=== PATIENT | male | born 1935 | race Caucasian/White ===

== ENCOUNTER 2018-11-29 16:48 | Inpatient (IN) ==
[2018-11-29] MEDS: Gabapentin 300 MG CAPSULE PO SCH (22:25)
[2018-11-30 05:09] LABS: White Blood Count 6.1 K/mcL (4.3-11.1)
[2018-11-30 05:10] LABS: Hematocrit 32.9 % (37.5-50.1); Hemoglobin 10.9 g/dL (12.9-16.9); Immature Granulocytes % 0.7 % (0-4); Lymphocytes # 0.5 K/mcL (0.6-4.6); Lymphocytes % 7.5 %; Mean Corpuscular HGB Conc 33.1 g/dL (31.6-35.5); Mean Corpuscular Hemoglobin 32.6 pg (28.0-33.3); Mean Corpuscular Volume 98.5 fL (83.0-100.0); Mean Platelet Volume 8.3 fL (9.4-12.4); Monocytes # 0.4 K/mcL (0.0-1.3); Monocytes % 6.1 %; Neutrophils # 5.2 K/mcL (1.6-8.9); Platelet Count 263 K/mcL (140-400); Red Blood Count 3.34 M/mcL (4.19-5.50); Red Cell Distribution Width 16.5 % (11.5-14.5); Segmented Neutrophils % 85.7 %
[2018-11-30 06:19] LABS: Carbon Dioxide 34 mEq/L (23-29); Chloride 89 mEq/L (98-107); Glucose 98 mg/dL (70-105); Potassium 4.2 mEq/L (3.5-5.1); Sodium 128 mEq/L (136-145); eGFR For African Americans > 60 (> 60); eGFR For Non-African Americans > 60 (> 60)
[2018-11-30 06:31] LABS: BUN/Creatinine Ratio 23 (6-26); Blood Urea Nitrogen 17 mg/dL (8-23); Osmolality,Calculated 268 (280-300)
[2018-11-30] MEDS: Gabapentin 300 MG CAPSULE PO SCH ×3 (08:47→22:43)
[2018-11-30] MEDS: Folic Acid 1 MG TABLET PO SCH (08:47)
[2018-11-30] MEDS: predniSONE 5 MG TABLET PO SCH (08:48)
[2018-11-30] MEDS: Ascorbic Acid 500 MG TABLET PO SCH (08:48)
[2018-11-30] MEDS: Cholecalciferol (D-3) 1,000 UNIT (25MCG) TABLET PO SCH (08:48)
[2018-11-30] MEDS: Metoprolol XL (24 HR) Succ 25 MG TAB.ER.24H PO SCH (08:48)
[2018-11-30] MEDS: Gentamicin OPTH Soln 5 ML BOTTLE BOTH EYES SCH ×4 (12:13→22:44)
--- NOTE | 2018-11-30 15:54 | Internal Med History&Physical ---
Date of Encounter: 11/30/18 Time of Encounter: 15:15 Assessment and Plan (1) Severe protein-calorie malnutrition Current visit: No Status: Chronic Soft diet with supplement has been ordered. (2) Lung mass Current visit: No Status: Acute Possible RLL malignancy although BAL showed no malignant cells with final cytology report pending. (3) Hypothyroidism Current visit: No Status: Chronic TSH was elevated during [facility] stay at 29.305. Patient was reportedly noncompliant at home with Synthroid use prior to hospitalization. His Synthroid dose was increased. TSH will be monitored. Qualifiers: Hypothyroidism type: unspecified Qualified Code(s): E03.9 - Hypothyroidism, unspecified (4) Anemia Current visit: No Status: Chronic Anemia testing 11/27/2018 showed iron 44, transferrin saturation 21%, transferrin 147, ferritin> 1500, B12 1450, and folate 8.9. Monitor CBC. Qualifiers: Anemia type: unspecified type Qualified Code(s): D64.9 - Anemia, unspecified (5) Dysphagia Current visit: No Status: Acute Continue soft diet with supplement. Monitor for aspiration symptoms. Qualifiers: Dysphagia type: unspecified Qualified Code(s): R13.10 - Dysphagia, unspecified (6) Afib Current visit: No Status: Acute Remain off OAC due to recent GI bleed. Qualifiers: Atrial fibrillation type: paroxysmal Qualified Code(s): I48.0 - Paroxysmal atrial fibrillation (7) Hypotension Current visit: No Status: Acute Orthostatic vital signs will be checked in a.m. Continue midodrine Qualifiers: Hypotension type: unspecified hypotension type Qualified Code(s): I95.9 - Hypotension, unspecified (8) Rheumatoid arthritis Current visit: No Status: Chronic Continue Plaquenil, methotrexate, and prednisone. Qualifiers: Rheumatoid arthritis location: unspecified site Rheumatoid factor presence: unspecified presence Qualified Code(s): M06.9 - Rheumatoid arthritis, unspecified (9) COPD (chronic obstructive pulmonary disease) Current visit: No Status: Chronic Continue Proventil and prednisone. Qualifiers: COPD type: unspecified COPD Qualified Code(s): J44.9 - Chronic obstructive pulmonary disease, unspecified Internal Medicine - H&P: HPI Chief complaint: Pneumonia, lung mass Admitted From: Hospital to Hospital Transfer Plans for Post Hospital Care: Home History of present illness: Mr. Morrow is a 83 year old male was hospitalized at [facility] November 25 after presenting with possible aspiration pneumonia. MBS was unremarkable. Bronchoscopy with right lower lobe BAL was done without malignancy diagnosed. Chest CT revealed dense masslike consolidation right lower lobe with air fluid level possibly representing tumor necrosis versus infection. It was felt he was too weak to undergo additional diagnostic testing such as lung biopsy. It was felt also he was a poor candidate for any cancer treatment if malignancy was found. Following stabilization he was discharged to [facility] swing bed for rehabilitation therapy prior to returning to independent living. Respiratory history is significant for having smoked since age 11 until quitting 3 weeks ago. He smoked up to one pack per day. He has a diagnosis of COPD and has oxygen at home but uses it only rarely when he feels dyspneic. Past Med Surg Social Fam HX - Past Medical History Medical history: arthritis, cancer, COPD, coronary artery disease, GERD, RA, thyroid disease Additional medical history: lymphoma, hypotension Psychiatric history: no psych history - Past Surgical History Surgical History: non-contributory - Social History Smoking Status: Former smoker Smokeless Tobacco Status: No Alcohol use: occasionally Drug use: none - Family History Brother Living Status: Still Living Hx Family Cancer: Yes (Lymphoma) Internal Medicine - H&P: Meds Ascorbate Calcium [Vitamin C] 500 mg PO DAILY 11/16/14 [History] Calcium Carbonate/Vitamin D3 [Calcium 600 + D Tablet] 1 each PO BID #60 tablet 11/16/14 [Rx] Omeprazole 20 mg PO DAILY 11/16/14 [History] Albuterol Sulfate [Proventil Inhaler] 2 puff IH Q4HR PRN 10/02/16 [History] Folic Acid 1 mg PO DAILY 10/02/16 [History] Hydroxychloroquine [Plaquenuil] 200 mg PO DAILY 10/02/16 [History] Methotrexate [Otrexup] 17.5 mg PO MILLS 10/02/16 [History] Gabapentin [Neurontin] 300 mg PO TID #90 capsule 07/23/18 [Rx] Midodrine HCl 10 mg PO TID #90 tablet 07/23/18 [Rx] Cholecalciferol (D-3) [Vitamin D] 2,000 unit PO DAILY 11/26/18 [History] Tobramycin 2 drop BOTH EYES Q4H 11/26/18 [History] predniSONE [PredniSONE] 5 mg PO DAILY 11/26/18 [History] Levothyroxine [Synthroid] 150 mcg PO DAILY@0630 tablet 11/29/18 [Rx] Metoprolol XL (24 HR) Succ [Toprol Xl] 25 mg PO DAILY tab.er.24h 11/29/18 [Rx] Sodium,Potassium Phosphates [Phos-Nak Packet] 1 each PO TID #90 powd.pack 11/29/18 [Rx] Allergy/AdvReac Type Severity Reaction Status Date / Time ceftriaxone [From Rocephin] AdvReac Anaphylaxis Verified 07/23/18 15:24 All Systems PM: A 10-system review of systems was performed and is negative for pertinent findings except as documented above in the HPI. Review of systems: Gen.: He states his weight has decreased approximately 12 pounds in the past 6 months. Prior to that he reports weight had remained stable for several years. Cardiovascular: He has history of atrial fibrillation that is apparently paroxysmal. He has orthostatic symptoms on standing from a seated position. He denies MS heart failure DVT or pulmonary embolus Respiratory: As per history of present illness GI: He had GI bleed during his recent [facility] stay. EGD showed esophagitis and ga stritis. OAC was not given for atrial fibrillation CVA prophylaxis due to GI bleed. He complains of intermittent dysphagia. He denies disorders of his liver gallbladder or exocrine pancreas : He has BPH symptoms with urinary urgency. He denies other kidney bladder prostate disorders. Neurologic: He denies large distribution strokes or seizures. Endocrine: He has hypothyroidism. He denies diabetes or hyperlipidemia. Hematology/oncology: He was diagnosed with large B-cell lymphoma 2008 and had chemotherapy treatments for 6 months. He reports he is in remission. He follows regularly with oncologist at [facility]. He had right lower lobe lung mass found without further workup as per history of present illness. He has anemia. Psychiatric: He has feelings of anxiety and depression but does not take medication at this time for mental health diagnoses. [place] skeletal: He has rheumatoid arthritis and degenerative disc disease. He denies gout or other bone joint or muscle disorders. - Constitutional Vitals: Temp Pulse Resp BP Pulse Ox 97.5 F L 78 18 129/78 93 11/30/18 06:37 11/30/18 06:37 11/30/18 06:37 11/30/18 06:37 11/30/18 06:37 Exam: Gen.: He is a well-developed cachectic male lying in bed who appears in no acute distress HEENT: Head is atraumatic and normocephalic. Eyes: EOMI. There is no scleral icterus. Mouth: Mucosa is moist. Neck: There is no thyromegaly or adenopathy noted. Heart: Regular without murmurs gallops or ectopics Lungs: He has diminished breath sounds diffusely. There are a few scattered rhonchi heard bilaterally. Abdomen: Soft and nontender. No masses or guarding are noted. Extremities: There is no cyanosis edema or clubbing noted. Dorsalis pedis and posterior tibial pulses are trace to 1+ palpable bilaterally. He has Dupuytren's contracture of the right fourth finger. He has flexion at the MCP joints with ulnar deviation on the right hand. The left hand shows no significant deformity. Neurologic: Mental status: He is talkative and a good historian. Cranial nerves: Smile is symmetric. Forehead wrinkles bilaterally. Tongue protrudes midline. EOMI. Motor: There is no pronator drift. Cerebellar: [place] nose is intact bilaterally. Skin: Warm and dry. He has ecchymoses in various stages covering large portions of his arms. Internal Med - H&P Results - Labs CBC & Chem 7: 11/30/18 04:55 11/30/18 04:55 Labs: Short CBC 11/30/18 Range/Units 04:55 WBC 6.1 (4.3-11.1) K/mcL Hgb 10.9 L (12.9-16.9) g/dL Hct 32.9 L (37.5-50.1) % Plt Count 263 (140-400) K/mcL Neutrophils # 5.2 (1.6-8.9) K/mcL BMP 11/30/18 04:55 Sodium 128 L Potassium 4.2 Chloride 89 L Carbon Dioxide 34 H BUN 17 Creatinine 0.74 Glucose 98 Calcium 9.0
[2018-12-01] MEDS: Gentamicin OPTH Soln 5 ML BOTTLE BOTH EYES SCH ×4 (08:49→21:13)
[2018-12-01] MEDS: Folic Acid 1 MG TABLET PO SCH (09:02)
[2018-12-01] MEDS: Gabapentin 300 MG CAPSULE PO SCH ×3 (09:02→21:41)
[2018-12-01] MEDS: Metoprolol XL (24 HR) Succ 25 MG TAB.ER.24H PO SCH (09:03)
[2018-12-01] MEDS: Cholecalciferol (D-3) 1,000 UNIT (25MCG) TABLET PO SCH (09:03)
[2018-12-01] MEDS: Ascorbic Acid 500 MG TABLET PO SCH (09:03)
[2018-12-01] MEDS: predniSONE 5 MG TABLET PO SCH (09:03)
--- NOTE | 2018-12-01 09:50 | Internal Med Progress Note ---
Date of Encounter: 12/01/18 Time of Encounter: 09:40 - Assessment and plan (1) Severe protein-calorie malnutrition Current Visit: No Status: Chronic Assessment and plan: December 01. Continue soft diet with supplement. (2) Lung mass Current Visit: No Status: Acute Assessment and plan: December 01. Possible RLL malignancy although BAL showed no malignant cells with final cytology report pending. (3) Hypothyroidism Current Visit: No Status: Chronic Assessment and plan: December 01. Continue present dose Synthroid. Qualifiers: Hypothyroidism type: unspecified Qualified Code(s): E03.9 - Hypothyroidism, unspecified (4) Anemia Current Visit: No Status: Chronic Assessment and plan: December 01. Anemia testing 11/27/2018 showed iron 44, transferrin saturation 21%, transferrin 147, ferritin> 1500, B12 1450, and folate 8.9. Monitor CBC. Qualifiers: Anemia type: unspecified type Qualified Code(s): D64.9 - Anemia, unsp ecified (5) Dysphagia Current Visit: No Status: Acute Assessment and plan: December 01. MBS 11/26/2018 showed no evidence of aspiration. Continue present diet and monitor. Qualifiers: Dysphagia type: unspecified Qualified Code(s): R13.10 - Dysphagia, unspecified (6) Afib Current Visit: No Status: Acute Assessment and plan: December 01. Remain off OAC due to recent GI bleed. Qualifiers: Atrial fibrillation type: paroxysmal Qualified Code(s): I48.0 - Paroxysmal atrial fibrillation (7) Hypotension Current Visit: No Status: Acute Assessment and plan: December 01. Orthostatic vital signs showed blood pressure 151/83 lying decreasing to 102/64 standing. Pulse rate increased slightly from 77 lying to 81 standing. Decrease Toprol-XL to 12.5 mg daily. Continue midodrine. Qualifiers: Hypotension type: unspecified hypotension type Qualified Code(s): I95.9 - Hypotension, unspecified (8) Rheumatoid arthritis Current Visit: No Status: Chronic Assessment and plan: December 01. Continue Plaquenil, methotrexate, and prednisone. Qualifiers: Rheumatoid arthritis location: unspecified site Rheumatoid factor presence: unspecified presence Qualified Code(s): M06.9 - Rheumatoid arthritis, unspecified (9) COPD (chronic obstructive pulmonary disease) Current Visit: No Status: Chronic Assessment and plan: December 01. Continue Proventil and prednisone. Qualifiers: COPD type: unspecified COPD Qualified Code(s): J44.9 - Chronic obstructive pulmonary disease, unspecified - Subjective Interval history: December 01. He states he feels "cold". He reports a cough productive of yellow sputum. - Constitutional Vitals: Temp Pulse Resp BP Pulse Ox 98.0 F 77 22 151/83 97 12/01/18 06:32 12/01/18 06:32 12/01/18 06:32 12/01/18 06:32 12/01/18 06:32 Exam: He is resting comfortably in bed and appears in no acute distress. He is not tachypneiic. Lungs show no wheezes or rhonchi. Heart is regular without murmurs gallops or ectopics. Extremities show no pitting edema. Reviewed his medications and lab results. Internal Medicine: Result - Labs CBC & Chem 7: 11/30/18 04:55 11/30/18 04:55 Consult Discharge Plan - Plan Referrals: Yimi Matthews DO [Primary Care Provider] - 1 week
[2018-12-01] MEDS ORDERED: *HR* Methotrexate 2.5 MG TABLET PO SCH (18:00)
[2018-12-02 05:26] LABS: Basophils % 0.3 %; Eosinophils % 0.5 %; Hematocrit 35.1 % (37.5-50.1); Hemoglobin 11.8 g/dL (12.9-16.9); Immature Granulocytes % 1.1 % (0-4); Lymphocytes # 0.5 K/mcL (0.6-4.6); Lymphocytes % 7.1 %; Mean Corpuscular HGB Conc 33.6 g/dL (31.6-35.5); Mean Corpuscular Hemoglobin 33.1 pg (28.0-33.3); Mean Corpuscular Volume 98.3 fL (83.0-100.0); Mean Platelet Volume 8.6 fL (9.4-12.4); Monocytes # 0.8 K/mcL (0.0-1.3); Monocytes % 10.9 %; Neutrophils # 5.9 K/mcL (1.6-8.9); Platelet Count 255 K/mcL (140-400); Red Blood Count 3.57 M/mcL (4.19-5.50); Red Cell Distribution Width 15.7 % (11.5-14.5); Segmented Neutrophils % 80.1 %; White Blood Count 7.3 K/mcL (4.3-11.1)
[2018-12-02 05:45] LABS: Alanine Aminotransferase 18 Units/L (7-52); Albumin 3.3 g/dL (3.5-5.7); Albumin/Globulin Ratio 1.1 (1.1-2.2); Alkaline Phosphatase 82 Units/L (34-104); Aspartate Amino Transferase 21 Units/L (13-39); BUN/Creatinine Ratio 28 (6-26); Bilirubin,Total 0.8 mg/dL (0.3-1.0); Blood Urea Nitrogen 20 mg/dL (8-23); Calcium 8.8 mg/dL (8.6-10.3); Carbon Dioxide 41 mEq/L (23-29); Chloride 85 mEq/L (98-107); Globulin 2.9 g/dL (2.4-3.5); Glucose 84 mg/dL (70-105); Osmolality,Calculated 268 (280-300); Phosphorous 2.7 mg/dL (2.7-4.5); Potassium 3.8 mEq/L (3.5-5.1); Sodium 128 mEq/L (136-145); Total Protein 6.2 g/dL (6.4-8.9); eGFR For African Americans > 60 (> 60); eGFR For Non-African Americans > 60 (> 60)
[2018-12-02] MEDS: Metoprolol XL (24 HR) Succ 25 MG TAB.ER.24H PO SCH (09:17)
[2018-12-02] MEDS: Ascorbic Acid 500 MG TABLET PO SCH (09:17)
[2018-12-02] MEDS: predniSONE 5 MG TABLET PO SCH (09:17)
[2018-12-02] MEDS: Gabapentin 300 MG CAPSULE PO SCH ×3 (09:18→20:26)
[2018-12-02] MEDS: Cholecalciferol (D-3) 1,000 UNIT (25MCG) TABLET PO SCH (09:18)
[2018-12-02] MEDS: Folic Acid 1 MG TABLET PO SCH (09:18)
--- NOTE | 2018-12-02 12:04 | Internal Med Progress Note ---
Date of Encounter: 12/02/18 Time of Encounter: 11:55 - Assessment and plan (1) Severe protein-calorie malnutrition Current Visit: No Status: Chronic Assessment and plan: December 01. Continue soft diet with supplement. (2) Lung mass Current Visit: No Status: Acute Assessment and plan: December 01. Possible RLL malignancy although BAL showed no malignant cells with final cytology report pending. December 02. Chest x-ray will be ordered to follow-up ongoing cough with yellow mucus production. Pro-calcitonin level will be checked. It was WNL on 11/25/2018 at 0.14. Mucinex will be started. (3) Hypothyroidism Current Visit: No Status: Chronic Assessment and plan: December 01. Continue present dose Synthroid. Qualifiers: Hypothyroidism type: unspecified Qualified Code(s): E03.9 - Hypothyroidism, unspecified (4) Anemia Current Visit: No Status: Chronic Assessment and plan: December 01. Anemia testing 11/27/2018 showed iron 44, transferrin saturation 21%, transferrin 147, ferritin> 1500, B12 1450, and folate 8.9. Monitor CBC. Qualifiers: Anemia type: unspecified type Qualified Code(s): D64.9 - Anemia, unsp ecified (5) Dysphagia Current Visit: No Status: Acute Assessment and plan: December 01. MBS 11/26/2018 showed no evidence of aspiration. Continue present diet and monitor. Qualifiers: Dysphagia type: unspecified Qualified Code(s): R13.10 - Dysphagia, unspecified (6) Afib Current Visit: No Status: Acute Assessment and plan: December 01. Remain off OAC due to recent GI bleed. December 2. Paroxysmal. He had NSR on EKG 12/26/2018 but atrial flutter on EKGs done November 26 and . Heart rate is controlled at present time. Qualifiers: Atrial fibrillation type: paroxysmal Qualified Code(s): I48.0 - Paroxysmal atrial fibrillation (7) Hypotension Current Visit: No Status: Acute Assessment and plan: December 01. Orthostatic vital signs showed blood pressure 151/83 lying decreasing to 102/64 standing. Pulse rate increased slightly from 77 lying to 81 standing. Decrease Toprol-XL to 12.5 mg daily. Continue midodrine. Qualifiers: Hypotension type: unspecified hypotension type Qualified Code(s): I95.9 - Hypotension, unspecified (8) Rheumatoid arthritis Current Visit: No Status: Chronic Assessment and plan: December 01. Continue Plaquenil, methotrexate, and prednisone. Qualifiers: Rheumatoid arthritis location: unspecified site Rheumatoid factor presence: unspecified presence Qualified Code(s): M06.9 - Rheumatoid arthritis, unspecified (9) COPD (chronic obstructive pulmonary disease) Current Visit: No Status: Chronic Assessment and plan: December 01. Continue Proventil and prednisone. Qualifiers: COPD type: unspecified COPD Qualified Code(s): J44.9 - Chronic obstructive pulmonary disease, unspecified - Subjective Interval history: December 01. He states he feels "cold". He reports a cough productive of yellow sputum. December 02. He reports ongoing cough productive of yellow sputum. - Constitutional Vitals: Temp Pulse Resp BP Pulse Ox 97.5 F L 79 16 119/69 96 12/02/18 06:38 12/02/18 06:38 12/02/18 06:38 12/02/18 06:38 12/02/18 06:38 Exam: He is sitting in bed eating lunch. He coughed occasionally during examination. Heart is regular without murmurs gallops or ectopics. Lungs show very few scattered rhonchi. No expiratory wheezing is heard. I reviewed his medications and lab results. Internal Medicine: Result - Labs CBC & Chem 7: 12/02/18 05:19 12/02/18 05:19 Labs: Short CBC 12/02/18 Range/Units 05:19 WBC 7.3 (4.3-11.1) K/mcL Hgb 11.8 L (12.9-16.9) g/dL Hct 35.1 L (37.5-50.1) % Plt Count 255 (140-400) K/mcL Neutrophils # 5.9 (1.6-8.9) K/mcL BMP 12/02/18 05:19 Sodium 128 L Potassium 3.8 Chloride 85 L Carbon Dioxide 41 H* BUN 20 Creatinine 0.71 Glucose 84 Calcium 8.8 Liver Function 12/02/18 Range/Units 05:19 Total Bilirubin 0.8 (0.3-1.0) mg/dL AST 21 (13-39) Units/L ALT 18 (7-52) Units/L Alkaline Phosphatase 82 (34-104) Units/L Albumin 3.3 L (3.5-5.7) g/dL Consult Discharge Plan - Plan Referrals: Yimi Matthews DO [Primary Care Provider] - 1 week
[2018-12-02] MEDS: Gentamicin OPTH Soln 5 ML BOTTLE BOTH EYES SCH ×2 (14:21→16:33)
[2018-12-02] MEDS ORDERED: CIPROFLOXACIN OPTH BOTH EYES SCH (21:00)
[2018-12-02] MEDS ORDERED: CIPROFLOXACIN OPTH RIGHT EYE SCH (21:00)
[2018-12-03] MEDS ORDERED: levoFLOXacin 750 MG/150 ML 750 MG/150 ML BAG IVPB ONE (02:08)
[2018-12-03 06:33] LABS: Basophils % 0.3 %; Eosinophils # 0.1 K/mcL (0.0-0.6); Eosinophils % 0.5 %; Hematocrit 37.3 % (37.5-50.1); Hemoglobin 12.6 g/dL (12.9-16.9); Immature Granulocytes % 0.6 % (0-4); Lymphocytes # 0.4 K/mcL (0.6-4.6); Lymphocytes % 3.6 %; Mean Corpuscular HGB Conc 33.8 g/dL (31.6-35.5); Mean Corpuscular Hemoglobin 33.5 pg (28.0-33.3); Mean Corpuscular Volume 99.2 fL (83.0-100.0); Mean Platelet Volume 9.1 fL (9.4-12.4); Monocytes # 0.4 K/mcL (0.0-1.3); Monocytes % 3.5 %; Neutrophils # 9.6 K/mcL (1.6-8.9); Platelet Count 299 K/mcL (140-400); Red Blood Count 3.76 M/mcL (4.19-5.50); Red Cell Distribution Width 15.8 % (11.5-14.5); Segmented Neutrophils % 91.5 %; White Blood Count 10.5 K/mcL (4.3-11.1)
[2018-12-03] MEDS: Cholecalciferol (D-3) 1,000 UNIT (25MCG) TABLET PO SCH (09:24)
[2018-12-03] MEDS: Metoprolol XL (24 HR) Succ 25 MG TAB.ER.24H PO SCH (09:24)
[2018-12-03] MEDS: predniSONE 5 MG TABLET PO SCH (09:24)
[2018-12-03] MEDS: Folic Acid 1 MG TABLET PO SCH (09:25)
[2018-12-03] MEDS: Ascorbic Acid 500 MG TABLET PO SCH (09:25)
[2018-12-03] MEDS: Ciprofloxacin OPTH Soln 2.5 ML BOTTLE BOTH EYES SCH ×2 (09:25→21:22)
[2018-12-03] MEDS: Gabapentin 300 MG CAPSULE PO SCH ×3 (09:25→21:22)
[2018-12-03] MEDS ORDERED: *HR* Propranolol 1 MG/ML VIAL IVP ONE (10:31)
[2018-12-03] MEDS ORDERED: *HR* Digoxin 0.5 MG/2 ML AMPUL IVP ONE ×2 (10:32→12:07)
[2018-12-03] MEDS ORDERED: *HR* Adenosine 6 MG/2 ML VIAL IVP ONE ×2 (11:17→11:47)
[2018-12-03] MEDS ORDERED: 0.9 % Sodium Chloride 500 ML IVC ONE (11:18)
[2018-12-03] MEDS ORDERED: 0.9 % Sodium Chloride 1,000 ML ONE ×2 (11:32→17:27)
[2018-12-03 11:53] LABS: Alanine Aminotransferase 15 Units/L (7-52); Albumin/Globulin Ratio 1.1 (1.1-2.2); Alkaline Phosphatase 67 Units/L (34-104); Aspartate Amino Transferase 19 Units/L (13-39); BUN/Creatinine Ratio 30 (6-26); Bilirubin,Total 0.9 mg/dL (0.3-1.0); Blood Urea Nitrogen 23 mg/dL (8-23); Calcium 8.6 mg/dL (8.6-10.3); Carbon Dioxide 36 mEq/L (23-29); Chloride 86 mEq/L (98-107); Globulin 2.7 g/dL (2.4-3.5); Glucose 106 mg/dL (70-105); Osmolality,Calculated 268 (280-300); Potassium 3.9 mEq/L (3.5-5.1); Sodium 127 mEq/L (136-145); Total Protein 5.7 g/dL (6.4-8.9); eGFR For African Americans > 60 (> 60); eGFR For Non-African Americans > 60 (> 60)
[2018-12-03] MEDS: Piperacillin/Tazobactam 3.375 GM in 0.9 % Sodium Chloride Mini Bag 100 ML IVPB SCH ×2 (12:26→21:21)
--- NOTE | 2018-12-03 12:39 | Internal Med Progress Note ---
Date of Encounter: 12/03/18 Time of Encounter: 12:25 - Assessment and plan (1) Severe protein-calorie malnutrition Current Visit: No Status: Chronic Assessment and plan: December 01. Continue soft diet with supplement. (2) Lung mass Current Visit: No Status: Acute Assessment and plan: December 01. Possible RLL malignancy although BAL showed no malignant cells with final cytology report pending. December 02. Chest x-ray will be ordered to follow-up ongoing cough with yellow mucus production. Pro-calcitonin level will be checked. It was WNL on 11/25/2018 at 0.14. Mucinex will be started. (3) Hypothyroidism Current Visit: No Status: Chronic Assessment and plan: December 01. Continue present dose Synthroid. Qualifiers: Hypothyroidism type: unspecified Qualified Code(s): E03.9 - Hypothyroidism, unspecified (4) Anemia Current Visit: No Status: Chronic Assessment and plan: December 01. Anemia testing 11/27/2018 showed iron 44, transferrin saturation 21%, transferrin 147, ferritin> 1500, B12 1450, and folate 8.9. Monitor CBC. Qualifiers: Anemia type: unspecified type Qualified Code(s): D64.9 - Anemia, unsp ecified (5) Dysphagia Current Visit: No Status: Acute Assessment and plan: December 01. MBS 11/26/2018 showed no evidence of aspiration. Continue present diet and monitor. Qualifiers: Dysphagia type: unspecified Qualified Code(s): R13.10 - Dysphagia, unspecified (6) Afib Current Visit: No Status: Acute Assessment and plan: December 01. Remain off OAC due to recent GI bleed. December 02. Paroxysmal. He had NSR on EKG 12/26/2018 but atrial flutter on EKGs done November 26 and . Heart rate is controlled at present time. December 03. Telemetry strip shows atrial fib/flutter with RVR. He has been given IV Inderal, Lanoxin, and Adenocard. Heart rate has begun to decrease. Continue to monitor. Qualifiers: Atrial fibrillation type: paroxysmal Qualified Code(s): I48.0 - Paroxysmal atrial fibrillation (7) Hypotension Current Visit: No Status: Acute Assessment and plan: December 01. Orthostatic vital signs showed blood pressure 151/83 lying decreasing to 102/64 standing. Pulse rate increased slightly from 77 lying to 81 standing. Decrease Toprol-XL to 12.5 mg daily. Continue midodrine. December 03. IV fluid bolus was given for worsened hypotension this morning. His pressure has responded with return to normal range. Continue to monitor. Qualifiers: Hypotension type: unspecified hypotension type Qualified Code(s): I95.9 - Hypotension, unspecified (8) Rheumatoid arthritis Current Visit: No Status: Chronic Assessment and plan: December 01. Continue Plaquenil, methotrexate, and prednisone. Qualifiers: Rheumatoid arthritis location: unspecified site Rheumatoid factor presence: unspecified presence Qualified Code(s): M06.9 - Rheumatoid arthritis, unspecified (9) COPD (chronic obstructive pulmonary disease) Current Visit: No Status: Chronic Assessment and plan: December 01. Continue Proventil and prednisone. Qualifiers: COPD type: unspecified COPD Qualified Code(s): J44.9 - Chronic obstructive pulmonary disease, unspecified - Subjective Interval history: December 01. He states he feels "cold". He reports a cough productive of yellow sputum. December 02. He reports ongoing cough productive of yellow sputum. December 03. He states still has significant cough with dyspnea and does not feel well. - Constitutional Vitals: Temp Pulse Resp BP Pulse Ox 98.4 F 138 30 72/40 100 12/03/18 07:20 12/03/18 11:05 12/03/18 11:05 12/03/18 11:05 12/03/18 11:05 Exam: He is resting in bed wearing oxygen by mask. Heart is tachycardic rate approximately 130/m. Lungs show no external wheezes anteriorly. Extermination no pitting edema. I reviewed his telemetry strips, medications, and lab results. Internal Medicine: Result - Labs CBC & Chem 7: 12/03/18 05:45 12/03/18 11:34 Labs: Short CBC 12/03/18 Range/Units 05:45 WBC 10.5 (4.3-11.1) K/mcL Hgb 12.6 L (12.9-16.9) g/dL Hct 37.3 L (37.5-50.1) % Plt Count 299 (140-400) K/mcL Neutrophils # 9.6 H (1.6-8.9) K/mcL BMP 12/03/18 11:34 Sodium 127 L Potassium 3.9 Chloride 86 L Carbon Dioxide 36 H BUN 23 Creatinine 0.77 Glucose 106 H Calcium 8.6 Liver Function 12/03/18 Range/Units 11:34 Total Bilirubin 0.9 (0.3-1.0) mg/dL AST 19 (13-39) Units/L ALT 15 (7-52) Units/L Alkaline Phosphatase 67 (34-104) Units/L Albumin 3.0 L (3.5-5.7) g/dL - Impressions Impressions Chest X-Ray 12/02/18 12:12 IMPRESSION: Findings similar to the prior study 11/25/2018 showing right pleural effusion and multifocal bilateral airspace disease. D/ / Josefina Marie Cha, MD / Josefina Marie Cha, MD Interpreting Provider: Josefina Marie Cha, MD Consult Discharge Plan - Plan Referrals: Yimi Matthews DO [Primary Care Provider] - 1 week
[2018-12-03] MEDS: 0.9 % Sodium Chloride 1,000 ML IVC SCH (18:06)
[2018-12-04] MEDS: Piperacillin/Tazobactam 3.375 GM in 0.9 % Sodium Chloride Mini Bag 100 ML IVPB SCH ×3 (04:20→19:42)
[2018-12-04] MEDS: 0.9 % Sodium Chloride 1,000 ML IVC SCH (04:22)
[2018-12-04 07:06] LABS: Basophils % 0.2 %; Eosinophils % 0.1 %; Hematocrit 32.8 % (37.5-50.1); Hemoglobin 11.1 g/dL (12.9-16.9); Immature Granulocytes % 0.6 % (0-4); Lymphocytes # 0.5 K/mcL (0.6-4.6); Lymphocytes % 4.1 %; Mean Corpuscular HGB Conc 33.8 g/dL (31.6-35.5); Mean Corpuscular Hemoglobin 33.5 pg (28.0-33.3); Mean Corpuscular Volume 99.1 fL (83.0-100.0); Mean Platelet Volume 8.5 fL (9.4-12.4); Monocytes # 0.3 K/mcL (0.0-1.3); Monocytes % 2.9 %; Neutrophils # 10.4 K/mcL (1.6-8.9); Platelet Count 290 K/mcL (140-400); Red Blood Count 3.31 M/mcL (4.19-5.50); Red Cell Distribution Width 15.9 % (11.5-14.5); Segmented Neutrophils % 92.1 %; White Blood Count 11.3 K/mcL (4.3-11.1)
[2018-12-04 07:43] LABS: BUN/Creatinine Ratio 30 (6-26); Blood Urea Nitrogen 20 mg/dL (8-23); Calcium 8.6 mg/dL (8.6-10.3); Carbon Dioxide 29 mEq/L (23-29); Chloride 91 mEq/L (98-107); Glucose 83 mg/dL (70-105); Osmolality,Calculated 272 (280-300); Potassium 3.4 mEq/L (3.5-5.1); Sodium 130 mEq/L (136-145); eGFR For African Americans > 60 (> 60); eGFR For Non-African Americans > 60 (> 60)
[2018-12-04] MEDS: Ascorbic Acid 500 MG TABLET PO SCH (09:47)
[2018-12-04] MEDS: predniSONE 5 MG TABLET PO SCH (09:47)
[2018-12-04] MEDS: Metoprolol XL (24 HR) Succ 25 MG TAB.ER.24H PO SCH (09:47)
[2018-12-04] MEDS: Folic Acid 1 MG TABLET PO SCH (09:47)
[2018-12-04] MEDS: Cholecalciferol (D-3) 1,000 UNIT (25MCG) TABLET PO SCH (09:47)
[2018-12-04] MEDS: Gabapentin 300 MG CAPSULE PO SCH ×3 (09:47→19:44)
[2018-12-04] MEDS: levoFLOXacin 750 MG/150 ML 750 MG/150 ML BAG IVPB SCH (09:48)
[2018-12-04] MEDS: Ciprofloxacin OPTH Soln 2.5 ML BOTTLE BOTH EYES SCH ×2 (09:48→19:59)
[2018-12-04] MEDS ORDERED: 0.9 % Sodium Chloride w KCl 20 MEQ/1,000 ML MLS IVC SCH ×2 (11:30→23:20)
--- NOTE | 2018-12-04 11:48 | Internal Med Progress Note ---
Date of Encounter: 12/04/18 Time of Encounter: 11:40 - Assessment and plan (1) Severe protein-calorie malnutrition Current Visit: No Status: Chronic Assessment and plan: December 01. Continue soft diet with supplement. (2) Lung mass Current Visit: No Status: Acute Assessment and plan: December 01. Possible RLL malignancy although BAL showed no malignant cells with final cytology report pending. December 02. Chest x-ray will be ordered to follow-up ongoing cough with yellow mucus production. Pro-calcitonin level will be checked. It was WNL on 11/25/2018 at 0.14. Mucinex will be started. December 04. Chest CT will be done to further evaluate and follow-up on right lower lobe cavitary lesion. (3) Hypothyroidism Current Visit: No Status: Chronic Assessment and plan: December 01. Continue present dose Synthroid. Qualifiers: Hypothyroidism type: unspecified Qualified Code(s): E03.9 - Hypothyroidism, unspecified (4) Anemia Current Visit: No Status: Chronic Assessment and plan: December 01. Anemia testing 11/27/2018 showed iron 44, transferrin saturation 21%, transferrin 147, ferritin> 1500, B12 1450, and folate 8.9. Monitor CBC. December 04. Hemoglobin stable 11.1 today. Qualifiers: Anemia type: unspecified type Qualified Code(s): D64.9 - Anemia, unspecified (5) Dysphagia Current Visit: No Status: Acute Assessment and plan: December 01. MBS 11/26/2018 showed no evidence of aspiration. Continue present diet and monitor. Qualifiers: Dysphagia type: unspecified Qualified Code(s): R13.10 - Dysphagia, unspecified (6) Afib Current Visit: No Status: Acute Assessment and plan: December 01. Remain off OAC due to recent GI bleed. December 02. Paroxysmal. He had NSR on EKG 12/26/2018 but atrial flutter on EKGs done November 26 and . Heart rate is controlled at present time. December 03. Telemetry strip shows atrial fib/flutter with RVR. He has been given IV Inderal, Lanoxin, and Adenocard. Heart rate has begun to decrease. Continue to monitor. December 04. He converted to NSR yesterday afternoon. Heart rate remains regular at 96/m now. Start oral Lanoxin and continue low-dose Toprol-XL. Qualifiers: Atrial fibrillation type: paroxysmal Qualified Code(s): I48.0 - Paroxysmal atrial fibrillation (7) Hypotension Current Visit: No Status: Acute Assessment and plan: December 01. Orthostatic vital signs showed blood pressure 151/83 lying decreasing to 102/64 standing. Pulse rate increased slightly from 77 lying to 81 standing. Decrease Toprol-XL to 12.5 mg daily. Continue midodrine. December 03. IV fluid bolus was given for worsened hypotension this morning. His pressure has responded with return to normal range. Continue to monitor. Qualifiers: Hypotension type: unspecified hypotension type Qualified Code(s): I95.9 - Hypotension, unspecified (8) Rheumatoid arthritis Current Visit: No Status: Chronic Assessment and plan: December 01. Continue Plaquenil, methotrexate, and prednisone. Qualifiers: Rheumatoid arthritis location: unspecified site Rheumatoid factor presence: unspecified presence Qualified Code(s): M06.9 - Rheumatoid arthritis, unspecified (9) COPD (chronic obstructive pulmonary disease) Current Visit: No Status: Chronic Assessment and plan: December 01. Continue Proventil and prednisone. Qualifiers: COPD type: unspecified COPD Qualified Code(s): J44.9 - Chronic obstructive pulmonary disease, unspecified - Subjective Interval history: December 01. He states he feels "cold". He reports a cough productive of yellow sputum. December 02. He reports ongoing cough productive of yellow sputum. December 03. He states still has significant cough with dyspnea and does not feel well. December 04. He states he has significant dyspnea. He has required oxygen by NRB to maintain acceptable saturation. Advance directives were ordered yesterday after conversation with him and he expressed a desire to be DNR CC. - Constitutional Vitals: Temp Pulse Resp BP Pulse Ox 96.7 F L 92 40 129/72 89 12/04/18 06:33 12/04/18 06:33 12/04/18 06:33 12/04/18 06:33 12/04/18 09:04 Exam: He is resting in bed wearing NRB. He appears dyspneic but is able to speak. Heart is regular with rate approximately 96/m. Extremities show no pitting edema. I reviewed his medications and lab results. Internal Medicine: Result - Labs CBC & Chem 7: 12/04/18 06:50 12/04/18 06:50 Labs: Short CBC 12/04/18 Range/Units 06:50 WBC 11.3 H (4.3-11.1) K/mcL Hgb 11.1 L D (12.9-16.9) g/dL Hct 32.8 L (37.5-50.1) % Plt Count 290 (140-400) K/mcL Neutrophils # 10.4 H (1.6-8.9) K/mcL BMP 12/03/18 12/04/18 11:34 06:50 Sodium 127 L 130 L Potassium 3.9 3.4 L Chloride 86 L 91 L Carbon Dioxide 36 H 29 BUN 23 20 Creatinine 0.77 0.66 L Glucose 106 H 83 Calcium 8.6 8.6 Liver Function 12/03/18 Range/Units 11:34 Total Bilirubin 0.9 (0.3-1.0) mg/dL AST 19 (13-39) Units/L ALT 15 (7-52) Units/L Alkaline Phosphatase 67 (34-104) Units/L Albumin 3.0 L (3.5-5.7) g/dL Consult Discharge Plan - Plan Referrals: Yimi Matthews DO [Primary Care Provider] - 1 week
[2018-12-04] MEDS: Gentamicin OPTH Soln 5 ML BOTTLE BOTH EYES SCH (11:50)
[2018-12-04] MEDS ORDERED: Potassium Chloride Elixir 20 MEQ/15 ML UDC PO ONE (12:30)
[2018-12-04] MEDS: *HR* Digoxin 0.125 MG TABLET PO SCH (12:37)
[2018-12-04] MEDS ORDERED: Furosemide 20 MG/2 ML VIAL IVP ONE (23:30)
[2018-12-05] MEDS ORDERED: *HR* Digoxin 0.5 MG/2 ML AMPUL IVP ONE (02:23)
[2018-12-05] MEDS ORDERED: *HR* Propranolol 1 MG/ML VIAL IVP ONE (03:12)
[2018-12-05] MEDS: Piperacillin/Tazobactam 3.375 GM in 0.9 % Sodium Chloride Mini Bag 100 ML IVPB SCH ×2 (03:21→13:07)
[2018-12-05 07:00] LABS: Basophils % 0.1 %; Hemoglobin 11.7 g/dL (12.9-16.9); Immature Granulocytes % 0.7 % (0-4); Lymphocytes # 0.4 K/mcL (0.6-4.6); Lymphocytes % 2.8 %; Mean Corpuscular HGB Conc 34.4 g/dL (31.6-35.5); Mean Corpuscular Hemoglobin 33.5 pg (28.0-33.3); Mean Corpuscular Volume 97.4 fL (83.0-100.0); Mean Platelet Volume 8.8 fL (9.4-12.4); Monocytes # 0.6 K/mcL (0.0-1.3); Monocytes % 4.7 %; Neutrophils # 11.5 K/mcL (1.6-8.9); Platelet Count 323 K/mcL (140-400); Red Blood Count 3.49 M/mcL (4.19-5.50); Red Cell Distribution Width 15.7 % (11.5-14.5); Segmented Neutrophils % 91.7 %; White Blood Count 12.5 K/mcL (4.3-11.1)
[2018-12-05 07:03] VITALS: BP 110/77
[2018-12-05 07:26] LABS: Platelet Estimate Normal (Normal)
[2018-12-05] MEDS: Metoprolol XL (24 HR) Succ 25 MG TAB.ER.24H PO SCH (07:31)
[2018-12-05] MEDS: Gabapentin 300 MG CAPSULE PO SCH ×2 (07:31→17:03)
[2018-12-05] MEDS: Cholecalciferol (D-3) 1,000 UNIT (25MCG) TABLET PO SCH (07:31)
[2018-12-05] MEDS: levoFLOXacin 750 MG/150 ML 750 MG/150 ML BAG IVPB SCH (07:32)
[2018-12-05] MEDS: Folic Acid 1 MG TABLET PO SCH (07:32)
[2018-12-05] MEDS: predniSONE 5 MG TABLET PO SCH (07:32)
[2018-12-05] MEDS: Ascorbic Acid 500 MG TABLET PO SCH (07:32)
[2018-12-05] MEDS: *HR* Digoxin 0.125 MG TABLET PO SCH (07:32)
[2018-12-05] MEDS: Ciprofloxacin OPTH Soln 2.5 ML BOTTLE BOTH EYES SCH (07:33)
[2018-12-05 07:39] LABS: BUN/Creatinine Ratio 24 (6-26); Blood Urea Nitrogen 16 mg/dL (8-23); Calcium 8.6 mg/dL (8.6-10.3); Carbon Dioxide 31 mEq/L (23-29); Chloride 88 mEq/L (98-107); Glucose 110 mg/dL (70-105); Magnesium 1.6 mg/dL (1.6-2.6); Osmolality,Calculated 274 (280-300); Potassium 3.4 mEq/L (3.5-5.1); Sodium 131 mEq/L (136-145); eGFR For African Americans > 60 (> 60); eGFR For Non-African Americans > 60 (> 60)
--- NOTE | 2018-12-05 15:49 | Discharge Summary ---
Date of Encounter: 12/05/18 Time of Encounter: 11:00 - Discharge Diagnosis (1) Pneumonia Priority: Primary Status: Acute Qualifiers: Pneumonia type: due to unspecified organism Laterality: right Lung location: unspecified part of lung Qualified Code(s): J18.9 - Pneumonia, unspecified organism (2) COPD (chronic obstructive pulmonary disease) Priority: Secondary Status: Chronic Qualifiers: COPD type: unspecified COPD Qualified Code(s): J44.9 - Chronic obstructive pulmonary disease, unspecified (3) Lung mass Priority: Secondary Status: Acute (4) Severe protein-calorie malnutrition Priority: Secondary Status: Chronic (5) Hypothyroidism Priority: Secondary Status: Chronic Qualifiers: Hypothyroidism type: unspecified Qualified Code(s): E03.9 - Hypothyroidism, unspecified (6) Anemia Priority: Secondary Status: Chronic Qualifiers: Anemia type: unspecified type Qualified Code(s): D64.9 - Anemia, unspecified (7) Dysphagia Priority: Secondary Status: Acute Qualifiers: Dysphagia type: unspecified Qualified Code(s): R13.10 - Dysphagia, unspecified (8) Afib Priority: Secondary Status: Acute Qualifiers: Atrial fibrillation type: paroxysmal Qualified Code(s): I48.0 - Paroxysmal atrial fibrillation (9) Hypotension Priority: Secondary Status: Chronic Qualifiers: Hypotension type: unspecified hypotension type Qualified Code(s): I95.9 - Hypotension, unspecified (10) Rheumatoid arthritis Priority: Secondary Status: Chronic Qualifiers: Rheumatoid arthritis location: unspecified site Rheumatoid factor presence: unspecified presence Qualified Code(s): M06.9 - Rheumatoid arthritis, unspecified Hospital course: Mr. Morrow is a 83 year old male who was hospitalized at [facility] November 25 after presenting with possible aspiration pneumonia. MBS was unremarkable. Bronchoscopy with right lower lobe BAL was done without malignancy diagnosed. C hest CT revealed dense masslike consolidation right lower lobe with air fluid level possibly representing tumor necrosis versus infection. It was felt he was too weak to undergo additional diagnostic testing such as lung biopsy. It was felt also he was a poor candidate for any cancer treatment if malignancy was found. Following stabilization he was discharged to [facility] swing bed for rehabilitation therapy prior to returning to independent living. I saw him on November 30 and performed the swing bed history and physical. He developed worsening dyspnea shortly after admission. Increased amounts of supplemental oxygen were needed to maintain satisfactory saturation. WBC denilson to 12.5 with 91.7% segs on 12/05/2018. Chest CT 12/04/2018 showed interval development of mucous plug in the right mainstem bronchus and subjacent right upper lobe bronchus and bronchus intermedius with extensive postobstructive pneumonitis in the right lung. There was persistent small cavitary process in the apex the right lung. There was worsening aeration of the left lung. I had a long discussion with patient and family December 05 and explained if aggressive care was to be continued he would need ongoing IV antibiotics and would benefit from transfer to another facility for bronchoscopy. After significant deliberation patient and family decided he would transition to hospice with ongoing IV antibiotics but no further aggressive intervention. IV antibiotics with probiotic be continued for 5 additional days at home. Supplemental oxygen will be given at home. Prognosis is poor. [facility] enrolled him the afternoon of December 05 and he was discharged home. - Time Spent with Patient Total time spent providing and/or coordinating discharge services: - Discharge Medications Prescriptions: New LORazepam Oral Conc [Ativan Oral Conc] 2 mg PO Q2H PRN 7 Days #120 mls PRN Reason: Agitation Lactobacillus [Culturelle] 1 each PO BID #10 cap.sprink levoFLOXacin 750 MG/150 ML [Levaquin Premix 750mg/150 mL] 750 mg IVPB DAILY #5 bag Morphine Sulfate Oral CONC [Roxanol Oral Conc] 10 mg PO Q1H PRN 7 Days #120 oral.syg PRN Reason: Pain Vancomycin [Vancocin] 750 mg IVPB Q24H 5 Days vial Piperacillin/Tazobactam [Zosyn] 3.375 gm IVPB Q8H 5 Days vial Continued Omeprazole 20 mg PO DAILY Folic Acid 1 mg PO DAILY Methotrexate [Otrexup] 17.5 mg PO MILLS Hydroxychloroquine [Plaquenuil] 200 mg PO DAILY Albuterol Sulfate [Proventil Inhaler] 2 puff IH Q4HR PRN PRN Reason: Shortness Of Breath Gabapentin [Neurontin] 300 mg PO TID #90 capsule Midodrine HCl 10 mg PO TID #90 tablet Tobramycin 2 drop BOTH EYES Q4H predniSONE [PredniSONE] 5 mg PO DAILY Metoprolol XL (24 HR) Succ [Toprol Xl] 25 mg PO DAILY tab.er.24h Levothyroxine [Synthroid] 150 mcg PO DAILY@0630 tablet Discontinued Ascorbate Calcium [Vitamin C] 500 mg PO DAILY Calcium Carbonate/Vitamin D3 [Calcium 600 + D Tablet] 1 each PO BID #60 tablet Cholecalciferol (D-3) [Vitamin D] 2,000 unit PO DAILY Sodium,Potassium Phosphates [Phos-Nak Packet] 1 each PO TID #90 powd.pack Home Medications: Omeprazole 20 mg PO DAILY 11/16/14 [History] Albuterol Sulfate [Proventil Inhaler] 2 puff IH Q4HR PRN 10/02/16 [History] Folic Acid 1 mg PO DAILY 10/02/16 [History] Hydroxychloroquine [Plaquenuil] 200 mg PO DAILY 10/02/16 [History] Methotrexate [Otrexup] 17.5 mg PO MILLS 10/02/16 [History] Gabapentin [Neurontin] 300 mg PO TID #90 capsule 07/23/18 [Rx] Midodrine HCl 10 mg PO TID #90 tablet 07/23/18 [Rx] Tobramycin 2 drop BOTH EYES Q4H 11/26/18 [History] predniSONE [PredniSONE] 5 mg PO DAILY 11/26/18 [History] Levothyroxine [Synthroid] 150 mcg PO DAILY@0630 tablet 11/29/18 [Rx] Metoprolol XL (24 HR) Succ [Toprol Xl] 25 mg PO DAILY tab.er.24h 11/29/18 [Rx] LORazepam Oral Conc [Ativan Oral Conc] 2 mg PO Q2H PRN 7 Days #120 mls 12/05/18 [Rx] Lactobacillus [Culturelle] 1 each PO BID #10 cap.sprink 12/05/18 [Rx] Morphine Sulfate Oral CONC [Roxanol Oral Conc] 10 mg PO Q1H PRN 7 Days #120 oral.syg 12/05/18 [Rx] Piperacillin/Tazobactam [Zosyn] 3.375 gm IVPB Q8H 5 Days vial 12/05/18 [Rx] Vancomycin [Vancocin] 750 mg IVPB Q24H 5 Days vial 12/05/18 [Rx] levoFLOXacin 750 MG/150 ML [Levaquin Premix 750mg/150 mL] 750 mg IVPB DAILY #5 bag 12/05/18 [Rx] Allergies/Adverse Reactions: Allergy/AdvReac Type Severity Reaction Status Date / Time ceftriaxone [From Rocephin] AdvReac Anaphylaxis Verified 07/23/18 15:24 Date of admission: 11/29/18 21:29 Primary care physician: Yimi Matthews DO Consults: 11/29/18 17:13 PT [Consult to Physical Therapy] [CONS] Routine Comment: Evaluate, develop and implement POC Reason for Consult: Weakness Does patient have active BEDREST order?: No Is patient medically & hemodynamically stable?: Yes Patient assessed for mobility or mobilized this visit?: No 11/29/18 17:14 OT [Consult to Occupational Therapy] [CONS] Routine Comment: Evaluate, develop and implement POC Reason for Consult: Weakness Does patient have active BEDREST order?: No Is patient medically & hemodynamically stable?: Yes Patient assessed for mobility or mobilized this visit?: No 11/29/18 17:15 Consult to Pulper [CONS] Routine Reason for SW Consult: discharge planning - Constitutional Vitals: Temp Pulse Resp BP Pulse Ox 97.4 F L 106 24 110/77 86 12/05/18 07:02 12/05/18 07:02 12/05/18 07:02 12/05/18 07:02 12/05/18 07:02 - Patient Status Disposition: Hospice - Home - Discharge Instructions Follow Up With: Yimi Matthews DO [Primary Care Provider] - 1 week - Diet and Activity Activity: wear oxygen at all times Diet: advance to your usual diet
--- NOTE | 2018-12-05 15:56 | Physician Discharge Referral ---
Home Health/Hosp Referral Info Transfer to: Hospice Attending Provider: Gerber Provider in Charge Post Discharge: PCP Kelly) - Diagnosis (1) Pneumonia Priority: Primary Status: Acute (2) COPD (chronic obstructive pulmonary disease) Priority: Secondary Status: Chronic (3) Lung mass Priority: Secondary Status: Acute (4) Severe protein-calorie malnutrition Priority: Secondary Status: Chronic (5) Hypothyroidism Priority: Secondary Status: Chronic (6) Anemia Priority: Secondary Status: Chronic (7) Dysphagia Priority: Secondary Status: Acute (8) Afib Priority: Secondary Status: Acute (9) Hypotension Priority: Secondary Status: Chronic (10) Rheumatoid arthritis Priority: Secondary Status: Chronic - Respiratory Orders Oxygen / L per min (10+ liters per minute oxygen by mask or high flow cannula to keep saturation to 90%.) Smoking Cessation: Smoking cessation has been advised. For more information, call the [place] Tobacco Quit Line at 7-085-XIZL-NOW. - Diet/Nutrition Diet/Nutrition Orders: Mechanical Soft - Activity Activity Orders: Chair - Services Needed Following services are medically necessary services: Nursing, Home Health Aide, Med Social Work, Home Infusion - Transfer Medications Prescriptions: LORazepam Oral Conc [Ativan Oral Conc] 2 mg PO Q2H PRN 7 Days #120 mls PRN Reason: Agitation Lactobacillus [Culturelle] 1 each PO BID #10 cap.sprink levoFLOXacin 750 MG/150 ML [Levaquin Premix 750mg/150 mL] 750 mg IVPB DAILY #5 bag Morphine Sulfate Oral CONC [Roxanol Oral Conc] 10 mg PO Q1H PRN 7 Days #120 oral.syg PRN Reason: Pain Home Medications: Omeprazole 20 mg PO DAILY 11/16/14 [History] Albuterol Sulfate [Proventil Inhaler] 2 puff IH Q4HR PRN 10/02/16 [History] Folic Acid 1 mg PO DAILY 10/02/16 [History] Hydroxychloroquine [Plaquenuil] 200 mg PO DAILY 10/02/16 [History] Methotrexate [Otrexup] 17.5 mg PO MILLS 10/02/16 [History] Gabapentin [Neurontin] 300 mg PO TID #90 capsule 07/23/18 [Rx] Midodrine HCl 10 mg PO TID #90 tablet 07/23/18 [Rx] Tobramycin 2 drop BOTH EYES Q4H 11/26/18 [History] predniSONE [PredniSONE] 5 mg PO DAILY 11/26/18 [History] Levothyroxine [Synthroid] 150 mcg PO DAILY@0630 tablet 11/29/18 [Rx] Metoprolol XL (24 HR) Succ [Toprol Xl] 25 mg PO DAILY tab.er.24h 11/29/18 [Rx] LORazepam Oral Conc [Ativan Oral Conc] 2 mg PO Q2H PRN 7 Days #120 mls 12/05/18 [Rx] Lactobacillus [Culturelle] 1 each PO BID #10 cap.sprink 12/05/18 [Rx] Morphine Sulfate Oral CONC [Roxanol Oral Conc] 10 mg PO Q1H PRN 7 Days #120 oral.syg 12/05/18 [Rx] Piperacillin/Tazobactam [Zosyn] 3.375 gm IVPB Q8H 5 Days vial 12/05/18 [Rx] Vancomycin [Vancocin] 750 mg IVPB Q24H 5 Days vial 12/05/18 [Rx] levoFLOXacin 750 MG/150 ML [Levaquin Premix 750mg/150 mL] 750 mg IVPB DAILY #5 bag 12/05/18 [Rx] Allergies/Adverse Reactions: Allergy/AdvReac Type Severity Reaction Status Date / Time ceftriaxone [From Rocephin] AdvReac Anaphylaxis Verified 07/23/18 15:24 Certification: Further, I certify that my clinical findings support that this patient is homebound (i.e. absences from home require considerable and taxing effort and are for medical reasons or hinduism services or infrequently or short duration when for other reasons) because: Homebound Reason: Leaving home requires considerable and taxing effort due to condition (End-stage COPD.) Attestation: My signature below is to certify that this patient is under my care and that I, or nurse practitioner, or a physician's resident programs assistant working with me, has a [id number] encounter with this patient.
[2018-12-05] MEDS ORDERED: Aminoglycoside Consult 1 EACH MC ONE (19:37)
== END 2018-12-05 19:38 | disposition hospice, home (50) | DRG 193 ==
LOC: INPPIK 21:29
PROVIDERS: ADMIT Internal Medicine; ATTEND Internal Medicine